=== PATIENT | female | born 1955 | race Caucasian/White ===

== ENCOUNTER → 2019-06-21 | Outpatient (CLI) | payer OTHER ==
[~2019-06-21] VITALS: Ht 167.6 cm; Wt 97.5 kg
[~2019-06-21] MED LIST: ALLOPURINOL 10100 M3 PO; ANTACID650 MG PO; APAP650 PO; CALCITRIOL0.25 MCG PO; CELEBREX 200 M200 M1 PO; CELEXA 10 MG TA10 M1 PO; HYDROXYCHLOROQ200 M1 PO; LORTAB 5 MG/5001 TA1 PO; MULTI VITAMIN1 EACH PO; NEURONTIN600 MG PO; NOLVADEX20 MG PO; NORCO 5-325 TA1 EACH PO; NORFLEX100 MG PO; PREMARIN0.625 MG PO; PROTONIX40 M4 PO; VITAMIN D22000 UNIT PO
--- NOTE | 2019-06-22 16:07 | PATH ---
[facility] [address] [place] [address] PATHOLOGY RPT PROCEDURE Name: NAYELI ALEXANDER Room #: REG [facility]..#: [id number] Admission: 06/21/19 Date of : 53 Discharge: Report #: [id number] Path Case #: [id number] [facility] Accession Number: [id number] . 01 Material submitted: . PART A: colon - POLYP AT TRANSVERSE COLON. Modifiers: transverse PART B: colon - POLYP AT DESCENDING COLON. Modifiers: descending PART C: rectum - RECTAL POLYP X2 . 01 Clinical history: . Pre-op diagnosis: Positive Cologuard Post-op diagnosis: Colon polyp, rectal polyps . 02 Diagnosis: A. Polyp, at transverse colon, endoscopic biopsy: - Tubular adenoma. - Negative for high-grade dysplasia. . B. Polyp, at descending colon, endoscopic biopsy: - Tubular adenoma. - Negative for high-grade dysplasia. . C. Polyp x2, rectal polyp, endoscopic biopsy: - Two fragments showing tubular adenoma; negative for high-grade dysplasia. - One fragment showing hyperplastic polyp; negative for dysplasia. . (IUV:inventory clerk; 06/22/2019) MBR 06/22/2019 1347 Local . 02 Electronically signed: . Jo Juares MD, Pathologist NPI- [id number] . 01 Gross description: . A. The specimen is received in formalin, labeled "Nayeli Arguelles, polyp at transverse colon". Received are three segments of pale nichols soft tissue ranging in size from 0.4 to 0.9 cm in maximum dimensions. The specimen is submitted entirely in cassette A1. . B. The specimen is received in formalin, labeled "Nayeli Arguelles, polyp at descending colon". Received are two segments of pale nichols soft tissue measuring 0.3 cm each in maximum dimensions. The specimen is submitted entirely in cassette B1. . C. The specimen is received in formalin, labeled "Nayeli Arguelles, rectal polyp x2". Received are three segments of pale nichols soft [address] [address] PATHOLOGY RPT PROCEDURE Name: NAYELI ALEXANDER Room #: REG [facility]#: [id number] Admission: 06/21/19 Date of : 53 Discharge: Report #: [id number] Path Case #: [id number] tissue ranging in size from 0.3 to 0.4 cm in maximum dimensions. The specimen is submitted entirely in cassette C1. (CAA; 06/21/2019) QAC/QAC 06/21/2019 1742 Local . 02 Pathologist provided ICD-10: D12.3, D12.4, D12.8, K62.1 . 02 CPT . 251764, 780566, 249458 Specimen Comment: A courtesy copy of this report has been sent to [phone] Specimen Comment: [phone] Specimen Comment: Report sent to / DR JOHNSON Performed at: [address], [place] [id number] MD Ricki Martinez MD Phone: [phone] Performed at: [address] [id number] MD Jo Juares MD Phone: [phone]
--- NOTE | 2019-06-23 12:59 | P ---
[facility] [place] [address] [address] [place] [address] PROCEDURE REPORT Name: AUTUMN ALEXANDER Room #: REG [facility] Destiney#: [id number] Admission: 06/21/19 Attend Phys: Jean Hewitt Discharge: Date of : 53 Report #: [id number] THIS REPORT FOR: cc: Blayne Tavera MD, Mark S. MD McElhinney, Christian C. MD ~ CC: Jean Tavera DATE OF SERVICE: 06/21/2019 PROCEDURE PERFORMED: Colonoscopy with biopsies. HISTORY OF PRESENT ILLNESS: The patient is a 64-year-old female who had a recent Cologuard test being positive. She denies any obvious bright red blood per rectum. No family history of colon cancer. She does have a previous history of polyps, last colonoscopy being approximately 5 years ago. DESCRIPTION OF PROCEDURE: The risks and benefits of the procedure were explained to the patient, those risks including but not limited to bleeding, perforation and the risk of sedation. She understood these risks and gave informed consent. Sedation was given using propofol per anesthesia. Next, a digital rectal exam was initially performed, which was normal. Next, using a standard Olympus colonoscope, the scope was placed in the patient's anus and advanced under direct vision to the cecum. The overall prep was excellent. The cecum and ileocecal valve were normal in appearance. Ascending colon was normal. In the transverse colon, there was a 4 mm sessile polyp. This was removed with cold forceps, otherwise normal. In the descending colon, a 3 mm sessile polyp also removed with cold forceps, otherwise normal. A few small scattered diverticula were noted in the sigmoid colon, no evidence of inflammation. In the rectum, there were 2 polyps, one 3 mm. The largest was 6 mm, both removed by cold forceps. On retroflexion, small nonbleeding internal hemorrhoids were noted, otherwise normal colonoscopy. The scope was then withdrawn and the procedure terminated. The patient tolerated the procedure well. IMPRESSION: 1. Small colonic polyps. 2. Sigmoid diverticulosis. 3. Small internal hemorrhoids. 4. Otherwise, normal colonoscopy. RECOMMENDATIONS: 1. Await biopsy results. 2. Repeat colonoscopy in 5 years. [facility] [address] [place] [address] PROCEDURE REPORT Name: AUTUMN ALEXANDER Room #: REG [facility] Destiney#: [id number] Admission: 06/21/19 Attend Phys: Jean Hewitt Discharge: Date of : 53 Report #: [id number] Thank you for allowing me to participate in her care. <ELECTRONICALLY SIGNED> By: Jean Ward MD 06/23/19 1259 1048 1913 Jean Ward MD /nt
== END | disposition home or self-care (01) ==
LOC: GI 09:13
DX: R19.5 Other fecal abnormalities (principal); Z86.010 Personal history of colon polyps; D12.3 Benign neoplasm of transverse colon; D12.4 Benign neoplasm of descending colon; D12.8 Benign neoplasm of rectum; K21.9 Gastro-esophageal reflux disease without esophagitis; K57.30 Diverticulosis of large intestine without perforation or abscess without bleeding; K64.8 Other hemorrhoids; F32.9 Major depressive disorder, single episode, unspecified; M10.9 Gout, unspecified; Z98.890 Other specified postprocedural states; Z79.899 Other long term (current) drug therapy; Z85.528 Personal history of other malignant neoplasm of kidney; Z90.710 Acquired absence of both cervix and uterus; Z90.49 Acquired absence of other specified parts of digestive tract; Z85.3 Personal history of malignant neoplasm of breast; Z87.19 Personal history of other diseases of the digestive system; Z88.8 Allergy status to other drugs, medicaments and biological substances